=== PATIENT | male | born 1935 | race Caucasian/White ===

== ENCOUNTER → 2017-01-16 14:45 | Outpatient (CLI) | payer MEDICARE, BC ==
[2013-06-20 10:15] VITALS: BMI 27.2
[~2017-01-16 14:45] MED LIST: ACETAMINOPHEN500 M1 PO; ALEVE220 MG PO; BENADRYL A12.5 MG/5 IV; BENADRYL25 M1 PO; BUFFERIN 325 M325 MG PO; COUMADIN5 MG PO; COUMADIN6 MG PO; COUMADIN7.5 MG PO; DULCOLAX10 MG/SUPP RC; MILK OF MAGNESI30 ML PO; MIRALAX17 GM PO; NARCAN INJ0.4 MG/ML IV; ONDANSETRON4 MG/2 M3 IV; OXYCONTIN10 MG PO; PERCOCET 10/3251 TA1 PO; SALINE FLUSH10 ML IJ; SALINE FLUSH10 ML IV; SENOKOT-S TABLE1 TAB PO; TRAVATAN Z2.5 ML EACH EYE; TYLENOL W/CODEI1 TAB PO; ZOFRAN4 MG PO
== END | disposition home or self-care (01) ==
LOC: D.MRI 14:45
DX: M54.16 Radiculopathy, lumbar region (principal)

== ENCOUNTER 2019-11-11 10:30 | Outpatient (CLI) | payer MEDICARE, BC ==
[2013-06-20 10:15] VITALS: BMI 27.2
== END 2019-11-11 11:30 | disposition home or self-care (01) ==
LOC: D.MAMMO 10:30
PROVIDERS: ATTEND Family Medicine
DX: N63.41 Unspecified lump in right breast, subareolar (principal)